=== PATIENT | female | born 1925 | race Caucasian/White ===

== ENCOUNTER 2016-06-01 17:38 | Inpatient (IN) | payer OTHER, MEDICARE ==
--- NOTE | 2016-06-01 18:05 | ED Physician Chart ---
Chief Complaint/HPI - Patient Information Date Seen:: 06/01/16 Time Seen:: 17:50 Chief Complaint:: verbally abusive History of Present Illness:: patient has become more verbally abusive at the [facility] recently. Allergies:: Allergies Allergy/AdvReac Type Severity Reaction Status Date / Time No Known Allergies Allergy Verified 06/01/16 17:55 Historian:: EMS Review:: Transfer documents Reviewed Review of Systems - Review of Systems General/Constitutional: No fever, No chills Skin: No skin lesions Head: No headache Eyes: No loss of vision ENT: No earache Neck: No neck pain Cardio Vascular: No chest pain, No palpitations Pulmonary: No SOB GI: No nausea, No vomiting G/U: No dysuria, No frequency Musculoskeletal: No bone or joint pain Endocrine: No polyuria Psychiatric: Prior psych history Allergic/Immuno: No urticaria Neurological: No syncope, No focal symptoms Past Medical History - Past Medical History Past Medical History: CAD (s/p UTI), Asthma/COPD, Other (depression; psychosis) Family History: Other (unavailable) Social History: Care Facility Surgical History: other (unavailable) Psychiatricy History: Depression, Other (psychosis) Medication: Reviewed Family Medical History - Family Member Mother History Unknown: Yes Physical Exam - Physical Examination General/Constitutional: Well-developed, well-nourished, Alert, No distress Head: Atraumatic Eyes: Lids, conjuctiva normal, PERRL Skin: Nl inspection, No rash, No skin lesions, No ecchymosis, Well hydrated, No lymphadenopathy ENMT: External ears, nose nl Neck: No nuchal rigidity Respiratory: Nl effort/Exclusion, Clear to Auscultation Cardio Vascular: RRR, No murmur, gallop, rubs GI: No tenderness/rebounding/guarding : No CVA tenderness Other Extremities comments:: 1/4 pre-tibial pitting edema Neuro/Psych: No focal deficits Labs/Radiology/EKG Results - Lab Results Comments:: Laboratory Results - last 24 hr 06/01/16 06/01/16 06/01/16 18:20 18:20 18:20 WBC 14.0 H RBC 3.57 L Hgb 11.1 L Hct 33.6 L MCV 94.1 MCH 31.1 H MCHC Differential 33.1 RDW 13.6 Plt Count 235 MPV 7.6 Neutrophils (Manual) 41 Lymphocytes 39 Monocytes 11 H Eosinophils 7 H Atypical Lymphocytes 2 Platelet Estimate ADEQUATE Platelet Morphology NORMAL RBC Morph Micro Appear NORMAL Sodium 143 Potassium 4.4 Chloride 113 H Carbon Dioxide 22.7 Anion Gap 11.7 BUN 26 H Creatinine 1.6 H Est GFR ( Amer) TNP Est GFR (Non-Af Amer) TNP BUN/Creatinine Ratio 16.3 Glucose 139 H Calcium 9.2 Total Bilirubin 0.3 AST 13 ALT 8 Alkaline Phosphatase 74 Total Protein 6.6 Albumin 3.6 L Globulin 3.0 Albumin/Globulin Ratio 1.2 TSH 0.26 L Urine Source Urine Color Urine Clarity Urine pH Ur Specific [place] Urine Protein Urine Glucose (UA) Urine Ketones Urine Blood Urine Nitrate Urine Bilirubin Urine Urobilinogen Ur Leukocyte Esterase Urine RBC Urine WBC Ur Epithelial Cells Amorphous Sediment Urine Bacteria 06/01/16 18:30 WBC RBC Hgb Hct MCV MCH MCHC Differential RDW Plt Count MPV Neutrophils (Manual) Lymphocytes Monocytes Eosinophils Atypical Lymphocytes Platelet Estimate Platelet Morphology RBC Morph Micro Appear Sodium Potassium Chloride Carbon Dioxide Anion Gap BUN Creatinine Est GFR ( Amer) Est GFR (Non-Af Amer) BUN/Creatinine Ratio Glucose Calcium Total Bilirubin AST ALT Alkaline Phosphatase Total Protein Albumin Globulin Albumin/Globulin Ratio TSH Urine Source CLEAN C Urine Color YELLOW Urine Clarity CLOUDY H Urine pH 7.0 Ur Specific [place] 1.025 Urine Protein >300 H Urine Glucose (UA) NEGATIVE Urine Ketones TRACE Urine Blood LARGE H Urine Nitrate POSITIVE H Urine Bilirubin NEGATIVE Urine Urobilinogen 0.2 Ur Leukocyte Esterase LARGE H Urine RBC 10-25 H Urine WBC >100 H Ur Epithelial Cells FEW Amorphous Sediment MANY URATES Urine Bacteria MANY ED Septic Shock - . Is Septic Shock (SBP<90, OR Lactate>4 mmol\L) present?: No Reassessment (Disposition) - Reassessment Reassessment Condition:: Unchanged - Diagnosis Diagnosis:: leukocytosis; UTI; verbally aggressive - Patient Disposition Admitted to:: [facility] Admitting Medical Physician:: Kel Franco Admitting Psych Physician:: Nicki Mcintosh Condition at Disposition:: Stable, Unchanged
[2016-06-01 18:30] LABS: HEMATOCRIT 33.6 % (35.0-45.0); HEMOGLOBIN 11.1 gm/dL (11.7-16.1); MEAN CELL VOLUME 94.1 fl (81-100); MEAN CORPUSCULAR HEMOGLOBIN 31.1 pg (27.0-31.0); MEAN CORPUSCULAR HGB CONC 33.1 pg (28.0-36.0); MEAN PLATELET VOLUME 7.6 fl; PLATELET COUNT 235 Th/cmm (150-400); RED BLOOD COUNT 3.57 Mil/cmm (3.80-5.20); RED CELL DISTRIBUTION WIDTH 13.6 % (11.5-20.0)
[2016-06-01 18:44] LABS: ALB/GLOB RATIO 1.2 (1.0-1.8); ALKALINE PHOSPHATASE 74 U/L (34-104); ANION GAP 11.7 (7.0-16.0); BILIRUBIN,TOTAL 0.3 mg/dL (0.3-1.0); BUN - UREA NITROGEN 26 mg/dL (7-25); BUN/CREATININE RATIO 16.3; CALCIUM SERUM 9.2 mg/dL (8.6-10.3); CARBON DIOXIDE 22.7 mEq/L (21.0-31.0); CHLORIDE 113 mEq/L (98-107); CREATININE - SERUM 1.6 mg/dL (0.6-1.2); GLUCOSE 139 mg/dL (70-105); POTASSIUM SERUM 4.4 mEq/L (3.5-5.1); SGOT 13 U/L (13-39); SGPT/ALT 8 U/L (7-52); SODIUM SERUM 143 mEq/L (136-145)
[2016-06-01 18:54] LABS: EOSINOPHIL 7 % (0-5); NEUTROPHILS 41 % (40-80); PLATELET ESTIMATE ADEQUATE (NORMAL); PLATELET MORPHOLOGY NORMAL (NORMAL); TOTAL CELLS COUNTED 100
[2016-06-01 20:56] LABS: URINE BILIRUBIN NEGATIVE (NEGATIVE); URINE BLOOD LARGE (NEGATIVE); URINE COLOR YELLOW; URINE GLUCOSE (UA) NEGATIVE (NEGATIVE); URINE KETONE TRACE mg/dL (NEGATIVE); URINE PROTEIN >300 mg/dL (NEGATIVE); URINE UROBILINOGEN 0.2 E.U./dL (0.2 - 1.0)
[2016-06-01 20:59] LABS: URINE AMORPHOUS SEDIMENT MANY URATES (NONE SEEN); URINE BACTERIA MANY /hpf (NONE SEEN); URINE EPITHELIAL CELLS FEW /lpf (FEW); URINE WBC >100 /hpf (0-5)
[2016-06-01] MEDS ORDERED: Fleet Enema 135 mL RC PRN (22:16)
[2016-06-01] MEDS ORDERED: Magnesium Hydroxide (MOM) 30 mL UDC PO PRN (22:16)
[2016-06-02 00:01] VITALS: BP 124/67
[2016-06-02] MEDS ORDERED: Non-Formulary Item 1 EA (Cranberry [Cranberry] 400 MG) PO SCH (09:00)
[2016-06-02] MEDS: Albuterol/Ipratropium Neb 3 ML AERS HHN SCH ×4 (09:08→23:46)
[2016-06-02] MEDS: Multivitamin Tab PO SCH (09:15)
[2016-06-02] MEDS: Dextromethorphan/Quinidine 20mg/10mg Cap PO SCH ×2 (13:46→21:05)
[2016-06-02] MEDS: HYDROCORTISONE 2.5% RC SCH ×2 (13:47→16:51)
--- NOTE | 2016-06-02 18:05 | Consultation ---
REQUESTING PHYSICIAN: Dr. Nicki Mcintosh. REASON FOR CONSULTATION: Includes urinary tract infection, chronic constipation, hemorrhoid, DJD, COPD, chronic depression, psychosis and coronary artery disease. HISTORY OF PRESENT ILLNESS: The patient is an 89-year-old female resident of [facility] brought to the Geropsych Unit. The patient is in a bed complaining feeling very cold and very thirsty, complaining of some pain in the legs. The patient also says that hemorrhoid is bothering her. The patient denies any headache, vision problem, swallowing problem, hepatitis mediocre, but no nausea, vomiting or abdominal pain. No chest pain, chest pressure, palpitation, no recent passing out, no leg swelling or joint swelling and no rashes. ALLERGIES: None. PAST MEDICAL HISTORY: As mentioned above. FAMILY HISTORY: Noncontributory. SOCIAL HISTORY: No smoking, alcohol, or substance abuse. REVIEW OF SYSTEMS: See the history of presenting illness. PHYSICAL EXAMINATION: VITAL SIGNS: The patient's height is 1.6 meter, weight 63.5 kg, BMI 24.8, temperature 98 and afebrile since admission, blood pressure 124/67, pulse 97, respiratory rate 18 and oxygen saturation on room air 94%. HEENT: Unremarkable. NECK: Supple. No JVD, bruit, or lymphadenopathy. LUNGS: Clear. CARDIOVASCULAR: S1 and S2 normal limit. ABDOMEN: Soft, nontender, no hepatosplenomegaly. RECTAL: Deferred by the patient. External genitalia normal. EXTREMITIES: No leg edema noted. Dorsalis pedis palpable. CENTRAL NERVOUS SYSTEM: Cranial nerves intact, nonfocal. MUSCULOSKELETAL: Consistent with DJD. LABORATORY TESTS: WBC 14,000, hemoglobin 11, MCV 94, platelet of 235,000 and neutrophil 39. Sodium 143, potassium WNL, chloride 113, bicarb 22, BUN 26, creatinine 1.6, glucose of 139 and calcium 9.2. Liver panel is unremarkable. Albumin is 3.6. TSH is 0.26. Urinalysis: Urine is cloudy, pH 7.0, specific gravity 1.025, nitrite is positive and leukocyte esterase large, WBCs more than 100 and epithelial cells are few. RPR was nonreactive on 06/01/2016. EKG: Normal sinus rhythm, essentially unremarkable with heart rate of 72. The patient had advanced directive of no CPR. ASSESSMENT AND PLAN: 1. Urinary tract infection. 2. Hypertension with chronic kidney disease, stage III. 3. Prerenal azotemia. 4. CAD. 5. COPD. 6. DJD. 7. Hemorrhoid with chronic constipation. 8. Mild normochromic normocytic anemia. 9. Mild hypoalbuminemia. 10. Advanced history of ____. Plan at the present time to give empiric Macrobid for 10 days, follow urine culture, encourage p.o. intake and the patient's current medication includes ibuprofen 400 q. 8 hours p.r.n. for pain. We will continue with that. Ativan 0.5 q. 4 hours p.r.n. for anxiety, Milk of Magnesia 30 mL at bedtime p.r.n., multivitamin and vitamin C one tablet once a day. The patient is on Zyprexa, will continue with the same. Lexapro is 10 mg once a day, continue same. The patient is on Nuedexta 20/10 mg once a day, will continue with that, Dulcolax suppository 10 mg at bedtime p.r.n., Lexapro 10 mg once a day, continue with same. Thanks Dr. Mcintosh. I will follow with you. JOB# [id number] [id number]
--- NOTE | 2016-06-02 23:13 | Psychosocial Evaluation ---
CHIEF COMPLAINT: "I am depressed." HISTORY OF PRESENT ILLNESS: The patient is an 89-year-old female who was sent from [facility] for increased depression, anxiety, voicing wishes, not wanting to live any more, becoming more agitated and started to have suicidal thoughts. The patient said she feels helpless and useless. She used to live on her own in [place] and she ended up in retirement and she feels she is getting tired in her old age. Also, the patient said she is becoming more forgetful. PAST PSYCHIATRIC HISTORY: Chronic depression, but never attempted suicide. PAST MEDICAL HISTORY: UTI, COPD, DJD. H and P by Dr. Fracno. PSYCHOSOCIAL HISTORY: The patient was residing in a retirement. The patient has 1 daughter, but she said she has no contact with her. MENTAL STATUS EXAMINATION: The patient is cooperative, in bed, appears to be her stated age. Her speech is fluent, nonpressured, low toned. Affect is severely depressed. No other visual hallucinations. Slightly guarded. She is oriented to person, knew she was in some kind of hospital, did not know the name of the hospital, knows her age. The patient thought it was May 2016, so she is oriented to approximate time. Short-term memory is poor, able to remember 1 out of 3 after 5 minutes. PATIENT'S STRENGTH: The patient is accepting treatment. PATIENT'S WEAKNESS: Poor coping skills. ASSESSMENT: Major depressive disorder, recurrent, severe, possibly with psychosis, rule out dementia, Alzheimer's type. MEDICAL: As per medical history. PLAN: We will admit the patient for hospitalization. We will start individual and group therapy. We will assess psychopharmacological intervention. ESTIMATED LENGTH OF STAY: 7-10 days. CRITERIA FOR DISCHARGE: Improved condition, less anxiety, less depression, no suicidal thoughts, safe disposition, outpatient treatment plan. [facility]# [id number]
[2016-06-02] MEDS: Hydrocodone/APAP 10 mg/325 mg Tab PO PRN (23:41)
[2016-06-03] MEDS: Albuterol/Ipratropium Neb 3 ML AERS HHN SCH ×3 (07:01→19:52)
[2016-06-03] MEDS: HYDROCORTISONE 2.5% RC SCH ×2 (09:18→16:42)
[2016-06-03] MEDS: Dextromethorphan/Quinidine 20mg/10mg Cap PO SCH ×2 (09:19→20:56)
[2016-06-03] MEDS: Multivitamin Tab PO SCH (09:19)
[2016-06-03] MEDS: Hydrocodone/APAP 10 mg/325 mg Tab PO PRN (21:51)
--- NOTE | 2016-06-03 22:47 | Progress Notes ---
SUBJECTIVE: The patient was seen. Remains depressed, feeling helpless and useless, intermittent wishes. The patient, however, is taking her medications. The patient has no auditory or visual hallucinations. The patient is oriented to person, knew she is in the hospital, knew her age. ASSESSMENT: The patient is still depressed and still having some wishes and some vague suicidal thoughts, but no active plans. PLAN: We will continue hospitalization, continue stabilization, continue medication management. [facility]# [id number]
[2016-06-04] MEDS: Albuterol/Ipratropium Neb 3 ML AERS HHN SCH ×3 (06:48→20:23)
[2016-06-04] MEDS: Dextromethorphan/Quinidine 20mg/10mg Cap PO SCH ×2 (08:56→20:34)
[2016-06-04] MEDS: Multivitamin Tab PO SCH (08:57)
[2016-06-04] MEDS: HYDROCORTISONE 2.5% RC SCH ×2 (08:57→17:28)
[2016-06-04] MEDS: Hydrocodone/APAP 10 mg/325 mg Tab PO PRN (17:29)
[2016-06-04] MEDS: Dicyclomine 10 mg Cap PO SCH (17:29)
[2016-06-05] MEDS: Albuterol/Ipratropium Neb 3 ML AERS HHN SCH ×3 (06:40→21:15)
[2016-06-05 08:25] LABS: HEMOGLOBIN 10.2 gm/dL (11.7-16.1); MEAN CELL VOLUME 94.5 fl (81-100); MEAN CORPUSCULAR HEMOGLOBIN 31.2 pg (27.0-31.0); MEAN PLATELET VOLUME 7.5 fl; PLATELET COUNT 217 Th/cmm (150-400); RED BLOOD COUNT 3.28 Mil/cmm (3.80-5.20); RED CELL DISTRIBUTION WIDTH 13.7 % (11.5-20.0); WHITE BLOOD COUNT 12.9 Th/cmm (4.8-10.8)
[2016-06-05 08:43] LABS: ALB/GLOB RATIO 1.2 (1.0-1.8); ALKALINE PHOSPHATASE 54 U/L (34-104); AMYLASE SERUM 37 U/L (29-103); ANION GAP 9.7 (7.0-16.0); BILIRUBIN,TOTAL 0.3 mg/dL (0.3-1.0); BUN - UREA NITROGEN 32 mg/dL (7-25); BUN/CREATININE RATIO 21.3; CALCIUM SERUM 9.1 mg/dL (8.6-10.3); CARBON DIOXIDE 23.6 mEq/L (21.0-31.0); CHLORIDE 112 mEq/L (98-107); CREATININE - SERUM 1.5 mg/dL (0.6-1.2); GLUCOSE 89 mg/dL (70-105); POTASSIUM SERUM 4.3 mEq/L (3.5-5.1); SGOT 13 U/L (13-39); SGPT/ALT 7 U/L (7-52); SODIUM SERUM 141 mEq/L (136-145)
[2016-06-05 09:30] LABS: BAND NEUTROPHILE 1 % (0-10); EOSINOPHIL 3 % (0-5); METAMYELOCYTE 1 % (0-0); NEUTROPHILS 35 % (40-80); PLATELET ESTIMATE ADEQUATE (NORMAL); PLATELET MORPHOLOGY NORMAL (NORMAL); TOTAL CELLS COUNTED 100
[2016-06-05] MEDS: Multivitamin Tab PO SCH (09:48)
[2016-06-05] MEDS: Dicyclomine 10 mg Cap PO SCH ×2 (09:48→17:50)
[2016-06-05] MEDS: HYDROCORTISONE 2.5% RC SCH ×2 (09:48→17:51)
[2016-06-05] MEDS: Dextromethorphan/Quinidine 20mg/10mg Cap PO SCH ×2 (09:49→21:09)
[2016-06-05] MEDS: Hydrocodone/APAP 10 mg/325 mg Tab PO PRN (10:00)
[2016-06-05] MEDS: Escitalopram Oxalate 10 MG, Escitalopram Oxalate 5 MG PO SCH (21:09)
[2016-06-06] MEDS: Albuterol/Ipratropium Neb 3 ML AERS HHN SCH ×3 (01:05→12:01)
--- NOTE | 2016-06-06 01:52 | Progress Notes ---
SUBJECTIVE: The patient was seen, discussed with staff. Remains forgetful, depressed episodes of helplessness and useless. On the other hand, she is taking her medications. Appetite is still a bit on low side. The patient is currently on Lexapro 10 mg daily. ASSESSMENT: The patient is still severely depressed, then wishes and also forgetful. PLAN: Continue hospitalization. Continue Lexapro 10 mg daily and Zyprexa 2.5 mg p.o. at bedtime. JOB# [id number]
--- NOTE | 2016-06-06 01:54 | Progress Notes ---
SUBJECTIVE: I met this patient, discussed with staff. Remains anxious and depressed, easily overwhelmed, episodes of helplessness and useless. The patient continues to have wishes. On the other hand, she is taking her medications, does not appear to have any side effects. Insight is poor, judgment remains impaired. ASSESSMENT: The patient is still highly depressed. PLAN: We will continue stabilization. Increase Lexapro to 15 mg p.o. at bedtime. Monitor to minimize any sedation during daytime and continue Zyprexa at 2.5 mg p.o. at bedtime. JOB# [id number]
[2016-06-06] MEDS: Hydrocodone/APAP 10 mg/325 mg Tab PO PRN ×2 (02:09→10:56)
[2016-06-06] MEDS: HYDROCORTISONE 2.5% RC SCH ×2 (09:50→17:26)
[2016-06-06] MEDS: Multivitamin Tab PO SCH (09:51)
[2016-06-06] MEDS: Dextromethorphan/Quinidine 20mg/10mg Cap PO SCH ×2 (09:51→21:00)
[2016-06-06] MEDS: Dicyclomine 10 mg Cap PO SCH ×2 (09:51→17:26)
[2016-06-06] MEDS: Escitalopram Oxalate 10 MG, Escitalopram Oxalate 5 MG PO SCH (20:31)
--- NOTE | 2016-06-07 00:47 | Progress Notes ---
SUBJECTIVE: I met this patient, discussed with staff, and chart reviewed. Admits to feeling depressed, still with episodes of helplessness and useless, talked about being old and how that affected her and said she is 89 years old and she feels helpless and cannot help but think about at times. The patient continues to have ____ negative thoughts. ASSESSMENT: The patient is still severely depressed. PLAN: We will continue stabilization. Continue hospitalization. Continue supportive measures. Lexapro was increased to 50 mg p.o. at bedtime. We will monitor closely. JOB# [id number]
[2016-06-07] MEDS: Hydrocodone/APAP 10 mg/325 mg Tab PO PRN ×2 (01:14→10:29)
[2016-06-07] MEDS: Albuterol/Ipratropium Neb 3 ML AERS HHN SCH ×4 (07:38→23:55)
[2016-06-07] MEDS: Dicyclomine 10 mg Cap PO SCH ×2 (10:29→17:58)
[2016-06-07] MEDS: Dextromethorphan/Quinidine 20mg/10mg Cap PO SCH ×2 (10:29→20:58)
[2016-06-07] MEDS: Multivitamin Tab PO SCH (10:29)
[2016-06-07] MEDS: HYDROCORTISONE 2.5% RC SCH ×2 (10:44→17:58)
[2016-06-07] MEDS: Escitalopram Oxalate 10 MG, Escitalopram Oxalate 5 MG PO SCH (20:58)
--- NOTE | 2016-06-07 20:59 | Progress Notes ---
SUBJECTIVE: The patient was seen, discussed with staff, chart is reviewed. Remains superficial, anxious, still with some episodes of depression, some episodes of helplessness. On the other hand, she is taking her medications, does not appear to have any side effects. Her appetite is slowly improving. The patient has no other visual hallucinations. ASSESSMENT: Major depressive disorder, recurrent, severe, possibly with psychosis. PLAN: We will continue stabilization, continue Lexapro 50 mg p.o. at bedtime, continue supportive measures. [facility]# [id number]
[2016-06-08] MEDS: Albuterol/Ipratropium Neb 3 ML AERS HHN SCH ×3 (07:26→19:21)
[2016-06-08] MEDS: Hydrocodone/APAP 10 mg/325 mg Tab PO PRN (09:22)
[2016-06-08] MEDS: Dicyclomine 10 mg Cap PO SCH ×2 (09:22→17:25)
[2016-06-08] MEDS: Dextromethorphan/Quinidine 20mg/10mg Cap PO SCH ×2 (09:22→20:13)
[2016-06-08] MEDS: Multivitamin Tab PO SCH (09:22)
[2016-06-08] MEDS: HYDROCORTISONE 2.5% RC SCH ×2 (17:05→17:25)
[2016-06-08] MEDS: Escitalopram Oxalate 10 MG, Escitalopram Oxalate 5 MG PO SCH (20:14)
[2016-06-09] MEDS: Albuterol/Ipratropium Neb 3 ML AERS HHN SCH ×3 (00:38→13:16)
--- NOTE | 2016-06-09 05:21 | Progress Notes ---
SUBJECTIVE: I met with the patient, discussed with staff, chart reviewed. Remains depressed, has obvious psychomotor slowing, episodes of helplessness and uselessness. The patient was oriented to person, knew she was in the hospital and knew her age. The patient has no auditory or visual hallucinations. No paranoid delusions. ASSESSMENT: Major depressive disorder, recurrent, severe. PLAN: We will continue Lexapro 50 mg p.o. at bedtime. Continue supportive measure, continue stabilization. JOB# [id number]
[2016-06-09] MEDS: Multivitamin Tab PO SCH (08:34)
[2016-06-09] MEDS: Dextromethorphan/Quinidine 20mg/10mg Cap PO SCH ×2 (08:34→20:33)
[2016-06-09] MEDS: Dicyclomine 10 mg Cap PO SCH ×2 (08:34→16:47)
[2016-06-09] MEDS: HYDROCORTISONE 2.5% RC SCH ×2 (11:18→17:02)
[2016-06-09] MEDS ORDERED: Hydrocodone/APAP 10 mg/325 mg Tab PO PRN (17:03)
[2016-06-09] MEDS: Escitalopram Oxalate 10 MG, Escitalopram Oxalate 5 MG PO SCH (20:33)
--- NOTE | 2016-06-10 01:47 | Progress Notes ---
SUBJECTIVE: The patient was seen, discussed with staff, chart reviewed. Remains isolative, quiet and withdrawn, still with sad facial expression and depressed affect and continues to voice some helplessness and uselessness. The patient, however, is taking her medications, does not appear to have any side effects. Lexapro was increased to ____ mg at nighttime. The patient continues to have some wishes and vague SI. ASSESSMENT: The patient is still severely depressed. PLAN: Continue hospitalization, continue supportive measures, continue stabilization. [facility]# [id number]
[2016-06-10] MEDS: Albuterol/Ipratropium Neb 3 ML AERS HHN SCH ×3 (07:39→19:35)
[2016-06-10] MEDS: Dextromethorphan/Quinidine 20mg/10mg Cap PO SCH ×2 (12:30→20:55)
[2016-06-10] MEDS: Multivitamin Tab PO SCH (12:31)
[2016-06-10] MEDS: Dicyclomine 10 mg Cap PO SCH ×2 (12:31→16:32)
[2016-06-10] MEDS: HYDROCORTISONE 2.5% RC SCH ×2 (12:31→16:33)
--- NOTE | 2016-06-10 20:15 | Progress Notes ---
SUBJECTIVE: The patient was seen, discussed with staff, and chart reviewed. Still with episodes of depression and anxiety. The patient with some helplessness and uselessness, lack of energy and poor motivation. She appears to have some apathy. Insight is still limited. Judgment remains impaired. ASSESSMENT: The patient is still severely depressed. PLAN: We will continue stabilization. Continue hospitalization. Continue medication management. [facility]# [id number]
[2016-06-10] MEDS: Escitalopram Oxalate 10 MG, Escitalopram Oxalate 5 MG PO SCH (20:55)
[2016-06-11] MEDS: Albuterol/Ipratropium Neb 3 ML AERS HHN SCH ×4 (01:23→19:04)
[2016-06-11] MEDS: HYDROCORTISONE 2.5% RC SCH ×2 (09:34→17:20)
[2016-06-11] MEDS: Multivitamin Tab PO SCH (09:34)
[2016-06-11] MEDS: Dicyclomine 10 mg Cap PO SCH ×2 (09:34→17:20)
[2016-06-11] MEDS: Dextromethorphan/Quinidine 20mg/10mg Cap PO SCH ×2 (09:34→21:04)
[2016-06-11] MEDS: Escitalopram Oxalate 10 MG, Escitalopram Oxalate 5 MG PO SCH (21:04)
--- NOTE | 2016-06-11 22:58 | Progress Notes ---
SUBJECTIVE: The patient was seen, discussed with staff, chart reviewed. Still somewhat restless, depressed, episodes of helplessness, guarded. The patient is oriented to person, knows she is in the hospital, knows her age, but she is not oriented to time. The patient continues to have sad facial expression. ASSESSMENT: Major depressive disorder, recurrent, severe with psychosis. PLAN: We will continue Lexapro 50 mg p.o. at bedtime. Continue supportive measure, continue to monitor closely. [facility]# [id number]
[2016-06-12] MEDS: Albuterol/Ipratropium Neb 3 ML AERS HHN SCH ×4 (02:37→18:22)
[2016-06-12] MEDS: Multivitamin Tab PO SCH (08:39)
[2016-06-12] MEDS: HYDROCORTISONE 2.5% RC SCH ×2 (08:39→16:56)
[2016-06-12] MEDS: Dicyclomine 10 mg Cap PO SCH ×2 (08:39→16:56)
[2016-06-12] MEDS: Dextromethorphan/Quinidine 20mg/10mg Cap PO SCH ×2 (08:39→21:00)
[2016-06-13] MEDS: Albuterol/Ipratropium Neb 3 ML AERS HHN SCH ×2 (00:13→07:55)
--- NOTE | 2016-06-13 01:09 | Progress Notes ---
TIME PATIENT SEEN: 10:30 a.m. Staff was spoken to. The patient is interviewed. Mood is noted to be anxious. The patient is isolative and withdrawn. Coping skills are noted to be still poor. The patient has been stating that she is having a difficult time last night, but otherwise she has been doing okay. The patient is currently on 15 mg of the citalopram and has been able to tolerate the medications. No side effects to the medications are noted so far. The patient is still concerned with her depression and the patient has been able to tolerate the Lexapro 15 mg and hence I decided to increase the dose to make it as a 20 mg today and follow the patient with supportive therapy. Case has been discussed in the treatment team meeting, and if the patient is going to be doing fairly well, the patient is going to be continued on the medications and is going to be discharged when the placement is going to be available. JOB# [id number]
[2016-06-13] MEDS: Dicyclomine 10 mg Cap PO SCH (09:55)
[2016-06-13] MEDS: HYDROCORTISONE 2.5% RC SCH (09:55)
[2016-06-13] MEDS: Multivitamin Tab PO SCH (09:55)
[2016-06-13] MEDS: Dextromethorphan/Quinidine 20mg/10mg Cap PO SCH (09:55)
--- NOTE | 2016-06-14 00:09 | Progress Notes ---
PSYCHIATRIC PROGRESS NOTE TIME PATIENT SEEN: 09:45 a.m. Staff was spoken to. The patient is interviewed. Mood is noted to be depressed and suicidal. Coping skills are noted to be poor. The patient is isolative and withdrawn. The patient is currently on Lexapro 20 mg and is also receiving Zyprexa 2.5 mg at bedtime. With these medications, the patient is going to be closely monitored. Since the patient is not able to contract for safety, the patient is going to be closely monitored and encouraged to participate in the groups and verbalize the concerns rather than to act out. ASSESSMENT: The patient is still depressed. PLAN: To continue the patient with the supportive therapy and followup. JOB# [id number]
--- NOTE | 2016-07-07 04:36 | Discharge Summary ---
IDENTIFYING DATA: The patient is an 89-year-old female, sent from [facility] for increased depression, anxiety and voicing wishes. CHIEF COMPLAINT: "I'm feeling depressed." DIAGNOSES AT THE TIME OF ADMISSION: AXIS I: A. Major depressive disorder, recurrent and severe. B. Dementia of Alzheimer's type. AXIS II: None. AXIS III: As per the primary care physician, Dr. Kel Franco. HISTORY OF PRESENT ILLNESS: Please refer to the 06/02/[address] Encarnacion who was covering for me. Physical examination was done by Dr. Kel Franco and he was noted to have significant urinary tract infection, hypertension, prerenal azotemia, coronary artery disease, COPD, DJD. The patient had the blood work done and that was reviewed by Dr. Kel Franco. HOSPITAL COURSE AND RESPONSE TO TREATMENT: The patient has been closely monitored on the inpatient unit, provided with supportive psychotherapy. The patient has been encouraged to participate in the groups and verbalize the concerns. The patient has been continued on the Lexapro and the patient also has been continued on the Nuedexta 10/20 mg and Lexapro has been given at 20 mg and the patient has been encouraged to verbalize the concerns. The patient has been placed on olanzapine 2.5 mg at bedtime for her agitation and the patient started to do fairly well and the patient was finally discharged on 06/13/2016 with the recommendation that she is going to be followed up by on outpatient basis. MENTAL STATUS EXAMINATION: At the time of discharge, the patient's mood is noted to be anxious. Affect is appropriate. Not suicidal or homicidal. Insight and judgment are noted to be improving. Impulse control seems to be fair. No side effects to the medications are noted. The patient is willing to comply with the treatment. DIAGNOSIS AT THE TIME OF DISCHARGE: AXIS I: Major depressive disorder, recurrent and moderate. SECONDARY DIAGNOSIS: None. MEDICAL DIAGNOSES: Chronic obstructive pulmonary disease, coronary artery disease, hypertension, and anemia. AFTERCARE PLAN: The patient is discharged to [facility] ____. PROGNOSIS: At the time of discharge noted to be fair with the treatment. JOB# [id number] [facility]
== END 2016-06-13 12:45 | DRG 885 ==
LOC: ER 17:38 → GERO 21:10
PROVIDERS: ADMIT Psychiatry & Neurology Psychiatry; ATTEND Psychiatry & Neurology Psychiatry
DX: F33.3 Major depressive disorder, recurrent, severe with psychotic symptoms (principal); E88.09 Other disorders of plasma-protein metabolism, not elsewhere classified; N39.0 Urinary tract infection, site not specified; I25.10 Atherosclerotic heart disease of native coronary artery without angina pectoris; J44.9 Chronic obstructive pulmonary disease, unspecified; F29 Unspecified psychosis not due to a substance or known physiological condition; K59.00 Constipation, unspecified; I12.9 Hypertensive chronic kidney disease with stage 1 through stage 4 chronic kidney disease, or unspecified chronic kidney disease; N18.3 Chronic kidney disease, stage 3 (moderate); M19.90 Unspecified osteoarthritis, unspecified site; K64.9 Unspecified hemorrhoids; D64.9 Anemia, unspecified
CPT/HCPCS: 36415-UA; 80053-TC; 80329-TC; 81001-TC; 82150-TC; 84439-90; 84443-TC; 85007-TC; 85027-TC; 86592-TC; 87086-90; 90899; 93005; 94640; 94760; J0696; Z7610